=== PATIENT | male | born 1965 | race Caucasian/White ===

== ENCOUNTER 2017-05-15 07:53 | Inpatient (IN) | payer OTHER ==
[~2017-05-15] VITALS: Ht 172.7 cm; Wt 79.5 kg
[~2017-05-15 07:53] MED LIST: ATAZ300C5 PO; DULO20CA43 PO; EMTR1TAB11 PO; RITO100T PO
[2017-05-15 12:58] VITALS: BP 127/79; PULSE 95; RESP 18; Ht 172.7 cm; Wt 79.5 kg
[2017-05-15 13:14] VITALS: PULSE 89
--- NOTE | 2017-05-15 14:20 | HP ---
Date/Time of Note Date/Time of Note DATE: 05/15/17 TIME: 13:54 Assessment/Plan VTE Prophylaxis VTE Prophylaxis Intervention: SCD's Assessment/Plan Assessment/Plan 51 yo M with 1. Migraine headaches 2. Colitis with abd pain and diarrhea 3. Meth user 4. Chest pain now resolved PLAN: Empiric abx with cipro and flagyl for colitis Stool studies and blood cultures IVF / pain control / antiemetics Telemetry admission, trend cardiac enzymes, 2d echo if none recently Daily aspirin if no allergy or bleeding risk. Get lipid profile, magnesium and TSH levels in am. HPI/ROS Admit Date/Time Admit Date/Time May 15, 2017 at 12:39 Hx of Present Illness 51-year-old male with a history of HIV who had presented to [facility] with complaints of headache photophobia and chest pain. He described this as generalized and cramping. He has had bowel movements but states that none with diarrhea L. Denies history of travel or spelled foods. Headache is in the frontal as well as occipital areas, associated with photophobia and was relieved by medication given in the emergency room. He has no neck stiffness or pain. He has nonspecific chest pain that is nonradiating does not have a history of coronary artery disease. Per report his last CD4 count was 256 and he had an undetected viral load at the time. Patient per report has also been passing foul-smelling gas. ROS 12 point review if systems was done and pertinent findings are as noted. PMH/Family/Social Past Medical History 1 HIV disease 2. Chronic migraines 3. History of shigellosis in the past 4. History of syphilis in the past 5. History of chickenpox in the past 6. Known gallstones without cholecystitis 7. History history of PTSD Social History Smoking Status: Current every day smoker Drug Use: other (Methamphetamine abuse last used last night) Exam/Review of Systems Vital Signs Vitals Vital Signs Date Time Temp Pulse Resp B/P Pulse Ox O2 Delivery O2 Flow Rate FiO2 05/15/17 13:14 89 05/15/17 12:58 98.0 18 127/79 96 Room Air Procedures Procedures Urinalysis was negative for obvious infection that was sperm in the urine however Stool studies were sent for C. difficile toxin, as well as enteric pathogens and parasites. Lipase level was normal First troponin was negative Total bilirubin was elevated at 4.1, indirect was elevated at 3.9. AST was mildly elevated at 45, ALT normal alkaline phosphatase normal. Serum sodium was low 133, potassium normal, chloride low 94, glucose within normal range, otherwise BMP was unremarkable Lactic acid level was normal CBC showed white count of 10,000 normal hemoglobin, normal hematocrit, normal platelet counts, normal differentials. EKG over at the emergency room at [facility] showed sinus tachycardia [address] scan showed colitis per report. Official radiology report is not available. LIANNA BROWN. May 15, 2017 14:04
[2017-05-15] MEDS ORDERED: LORAZEPAM 2 MG INJ IV PRN (14:30)
[2017-05-15] MEDS ORDERED: ONDANSETRON 4 MG INJ IV PRN (14:30)
[2017-05-15] MEDS ORDERED: HYDROCODONE/APAP (5/325) TAB PO PRN (14:30)
[2017-05-15] MEDS ORDERED: ACETAMINOPHEN 325 MG TAB PO PRN (14:30)
[2017-05-15 15:22] LABS: TROPONIN-I 0.015 ng/ml (0.00-0.12)
[2017-05-15 15:28] LABS: CK-MB 0.39 ng/ml (0.0-2.4)
[2017-05-15] MEDS: SOD CHLORIDE 0.9% 1,000 ML IV SCH ×2 (15:29→22:30)
[2017-05-15] MEDS: ATAZANAVIR 150 MG CAP PO SCH (15:30)
[2017-05-15] MEDS: RITONAVIR 100 MG CAP PO SCH (15:30)
[2017-05-15] MEDS: CIPROFLOXACIN 400MG/D5W 200 ML IVPB SCH (15:30)
[2017-05-15] MEDS: EMTRICITABINE/TENOFOVIR TAB PO SCH (15:30)
[2017-05-15] MEDS: metroNIDAZOLE 500 MG TAB PO SCH ×2 (15:30→22:18)
[2017-05-15 16:07] VITALS: PULSE 87
[2017-05-15 16:13] VITALS: BP 129/79; RESP 18
--- NOTE | 2017-05-15 17:05 | RADRPT ---
Echocardiogram Report Patient Name: PLACIDO CORRALES Gender: Male Date: 1965 Study Date: 15-May-2017 Echocardiologist: [facility] Location: 5554 Ref. Physician: LIANNA BROWN Quality: Adequate Procedures: Transthoracic echocardiogram with complete 2D, M-Mode, and doppler examination. Indications: Chest Pain / Meth Use. 2D/M Mode Doppler Measurement Value Normal Ranges Measurement Value Normal Ranges LVIDd 2D 4.6 3.5 - 5.6 cm AV Peak Dirk 1.3 m/sec LVIDs 2D 3.2 2.1 - 4.1 cm AV Peak PG 6.3 mmHg LVPWd 2D 1.1 0.6 - 1.1 cm LVOT Peak Dirk 1.1 m/sec IVSd 2D 1.0 0.6 - 1.1 cm LVOT Peak PG 4.6 mmHg AoR Diam 2D 2.8 2.0 - 3.7 cm MV E Peak Dirk 0.9 m/sec EDV 2D 97.3 cm3 MV A Peak Dirk 0.8 m/sec ESV 2D 31.7 cm3 MV E/A 1.1 LA Dimen 2D 4.0 2.3 - 4.0 cm MV Decel Time 185 msec MV Decel [place] 5 MV E/A 1.1 Findings Left Ventricle: Normal left ventricular systolic function. Normal left ventricular cavity size. Normal left ventricular wall thickness. Ejection fraction is visually estimated at 65 %. Abnormal Diastolic Function. Right Ventricle: Normal right ventricular size. Normal right ventricular systolic function. Left Atrium: The left atrium is normal in size. Right Atrium: The right atrium is normal in size. Mitral Valve: Normal appearance and function of the mitral valve with trace physiologic regurgitation. Aortic Valve: Normal appearance of the aortic valve. No significant aortic stenosis or insufficiency. Tricuspid Valve: Normal appearance and function of the tricuspid valve with trace physiologic regurgitation. Pericardium: Normal pericardium with no significant pericardial effusion. Aorta: Normal aortic root. IVC: Normal size and normal respiratory collapse consistent with normal right atrial pressure. Conclusions Normal left ventricular systolic function. Normal left ventricular cavity size. Normal left ventricular wall thickness. Ejection fraction is visually estimated at 65 %. Abnormal Diastolic Function. Normal right ventricular size. Normal right ventricular systolic function. The left atrium is normal in size. The right atrium is normal in size. No significant valvular stenosis or regurgitation seen. Normal pericardium with no significant pericardial effusion. Electronically Signed By: Crescencio Ahn 15-May-2017 17:04:58 -0700 Patient Name: PLACIDO CORRALES Study Date: 15-May-2017 [id number]
[2017-05-15] MEDS: morphine 2 MG INJ IV PRN (17:24)
[2017-05-15 20:37] VITALS: PULSE 89
[2017-05-15 20:58] VITALS: BP 114/68; PULSE 86; RESP 16
[2017-05-16] VITALS (9 sets, daily range): BP systolic 110–122; BP diastolic 63–71; PULSE 79–91; RESP 18–20
[2017-05-16] MEDS: CIPROFLOXACIN 400MG/D5W 200 ML IVPB SCH ×2 (01:08→08:31)
[2017-05-16] MEDS: morphine 2 MG INJ IV PRN ×2 (02:24→08:32)
[2017-05-16] MEDS: metroNIDAZOLE 500 MG TAB PO SCH ×2 (05:45→13:45)
[2017-05-16] MEDS: SOD CHLORIDE 0.9% 1,000 ML IV SCH ×2 (05:45→13:45)
[2017-05-16 07:42] LABS: ADD SCAN DIFF NO
[2017-05-16 07:48] LABS: EOSINOPHILS # 0.2 10^3/ul (0.0-0.5); EOSINOPHILS % 2.3 % (0.0-7.0); HEMATOCRIT 38.4 % (42.0-52.0); HEMOGLOBIN 12.4 g/dl (14.0-18.0); LYMPHOCYTES # 1.4 10^3/ul (0.8-2.9); LYMPHOCYTES % 18.1 % (15.0-51.0); MEAN CORPUSCULAR HEMOGLOBIN 29.3 pg (29.0-33.0); MEAN CORPUSCULAR HGB CONC 32.3 g/dl (32.0-37.0); MEAN CORPUSCULAR VOLUME 90.8 fl (82.0-101.0); MEAN PLATELET VOLUME 8.8 fl (7.4-10.4); MONOCYTE # 0.8 10^3/ul (0.3-0.9); MONOCYTES % 9.9 % (0.0-11.0); NEUTROPHIL # 5.4 10^3/ul (1.6-7.5); NEUTROPHILS % 69.4 % (39.0-77.0); PLATELET COUNT 224 10^3/UL (140-415); RED BLOOD COUNT 4.23 10^6/ul (4.70-6.10); RED CELL DISTRIBUTION WIDTH 13.7 % (11.5-14.5); WHITE BLOOD COUNT 7.7 10^3/ul (4.8-10.8)
[2017-05-16 08:31] LABS: ALBUMIN 3.4 g/dl (3.3-4.9); BILIRUBIN,INDIRECT 3.4 mg/dl (0-1.1); BILIRUBIN,TOTAL 3.4 mg/dl (0.2-1.3); CALCIUM 8.2 mg/dl (8.4-10.2); CHOL/HDL RATIO 3.4 RATIO; CREATININE 0.7 mg/dl (0.61-1.24); POTASSIUM 3.8 mmol/L (3.5-5.1)
[2017-05-16] MEDS: EMTRICITABINE/TENOFOVIR TAB PO SCH (08:31)
[2017-05-16] MEDS: ATAZANAVIR 150 MG CAP PO SCH (08:31)
[2017-05-16] MEDS: RITONAVIR 100 MG CAP PO SCH (08:31)
[2017-05-16] MEDS ORDERED: DULOXETINE 20 MG CAP DR PO SCH (09:00)
[2017-05-16] MEDS ORDERED: ASPIRIN 81 MG TAB PO SCH (09:00)
[2017-05-16] MEDS ORDERED: ASPI81TA3 PO (10:56)
[2017-05-16] MEDS ORDERED: METR500T PO (10:56)
[2017-05-16] MEDS ORDERED: LACT1CAP43 PO (10:58)
[2017-05-16] MEDS ORDERED: CIPR500T4 PO (10:58)
[2017-05-16] MEDS ORDERED: HYDR-906 PO (10:58)
[2017-05-16] MEDS ORDERED: CHLO25CA9 PO (13:22)
[2017-05-16] MEDS ORDERED: TRAM50TA2 PO (13:22)
--- NOTE | 2017-05-16 13:23 | PDOCDIS ---
Discharge Instructions DIAGNOSIS Discharge Diagnosis: Colitis CONDITION Patient Condition: Stable HOME CARE INSTRUCTIONS: Special Diet: Cardiac Diet / high fiber ACTIVITY: Activity Restrictions: Slowly Increase Activity Rest between Activity FOLLOW UP/APPOINTMENTS Appointments Followup with your primary doctor within the next 1-2 weeks. If you don't have one please let someone know, we can give you resources that may help you pick one. You may call Dr Chandrakant Galloway's office. he's accepting new patients Name, Degree: Chandrakant Galloway MD Specialty: Internal Medicine Comments: Office Address: [address] [place] [address] [place] [address] Office Office You may also call your insurance company to assign one to you. Review your medication list with your nurse before leaving and if you need new prescriptions please let your nurse know. I may have made changes to your home medications or given you new prescriptions , please let your primary doctor know as well. Stay compliant with your medications and report any side effects to your PCP or pharmacist. Return to the ER if you have any concerns and cannot reach your doctors or call your insurance company, they usually have a nurse that can help you. LIANNA BROWN May 16, 2017 13:23
--- NOTE | 2017-05-16 19:28 | DS ---
Date/Time of Note Date/Time of Note DATE: 05/16/17 TIME: 19:28 Discharge Summary Admission/Discharge Info Admit Date/Time May 15, 2017 at 12:39 Discharge Date/Time May 16, 2017 at 16:12 Final Diagnosis 51 yo M with 1. Migraine headaches 2. Colitis with abd pain and diarrhea 3. Meth user 4. Chest pain now resolved Hx of Present Illness 51-year-old male with a history of HIV who had presented to [facility] with complaints of headache photophobia and chest pain. He described this as generalized and cramping. He has had bowel movements but states that none with diarrhea L. Denies history of travel or spelled foods. Headache is in the frontal as well as occipital areas, associated with photophobia and was relieved by medication given in the emergency room. He has no neck stiffness or pain. He has nonspecific chest pain that is nonradiating does not have a history of coronary artery disease. Per report his last CD4 count was 256 and he had an undetected viral load at the time. Patient per report has also been passing foul-smelling gas. Home Meds Active Scripts Tramadol HCl (Tramadol HCl) 50 Mg Tablet, 50 MG PO Q6H Y for PAIN, #21 TAB Prov:LIANNA BROWN . 05/16/17 Chlordiazepoxide* (Chlordiazepoxide*) 25 Mg Capsule, 25 MG PO Q8H Y for CONTROL WITHDRAWAL SYMPTOMS, #21 CAP Prov:LIANNA BROWN . 05/16/17 Lactobacillus Acidophilus (ACIDOPHILUS PROBIOTIC) 1 Mg Tablet, 1 MG PO BID for 9 Days, TAB Prov:LIANNA BROWN Woody 05/16/17 Ciprofloxacin Hcl* (Ciprofloxacin Hcl*) 500 Mg Tablet, 500 MG PO BID for 9 Days , TAB Prov:LIANNA BROWN . 05/16/17 Aspirin (Aspirin) 81 Mg Chew, 81 MG PO DAILY for 30 Days, TAB 2 Refills Prov:VASILE BROWNMaria Luz . 05/16/17 Metronidazole* (Flagyl*) 500 Mg Tablet, 500 MG PO Q8 for 9 Days, TAB Prov:LIANNA BROWN 05/16/17 Reported Medications Atazanavir Sulfate* (Reyataz*) 300 Mg Capsule, 300 MG PO DAILY 12/26/13 Ritonavir* (Norvir*) 100 Mg Tablet, 100 MG PO DAILY 12/26/13 Duloxetine Hcl* (Cymbalta*) 20 Mg Capsule.dr, 20 MG PO DAILY 12/26/13 Emtricitabine-Tenofovir* (Truvada*) 1 Each Tablet, 1 EACH PO DAILY 12/26/13 Primary Care Provider Not On Staff Doctor Pending Labs Laboratory Tests Test 05/16/17 07:05 White Blood Count 7.710^3/ul (4.8-10.8) Red Blood Count 4.2310^6/ul (4.70-6.10) Hemoglobin 12.4g/dl (14.0-18.0) Hematocrit 38.4% (42.0-52.0) Mean Corpuscular Volume 90.8fl (82.0-101.0) Mean Corpuscular Hemoglobin 29.3pg (29.0-33.0) Mean Corpuscular Hemoglobin Concent 32.3g/dl (32.0-37.0) Red Cell Distribution Width 13.7% (11.5-14.5) Platelet Count 80515^3/UL (140-415) Mean Platelet Volume 8.8fl (7.4-10.4) Neutrophils % 69.4% (39.0-77.0) Lymphocytes % 18.1% (15.0-51.0) Monocytes % 9.9% (0.0-11.0) Eosinophils % 2.3% (0.0-7.0) Basophils % 0.0% (0.0-2.0) Nucleated Red Blood Cells % 0.0/100WBC (0.0-0.0) Neutrophils # 5.410^3/ul (1.6-7.5) Lymphocytes # 1.410^3/ul (0.8-2.9) Monocytes # 0.810^3/ul (0.3-0.9) Eosinophils # 0.210^3/ul (0.0-0.5) Basophils # 0.010^3/ul (0.0-0.1) Nucleated Red Blood Cells # 0.010^3/ul (0.0-0.0) Sodium Level 139mmol/L (135-144) Potassium Level 3.8mmol/L (3.5-5.1) Chloride Level 107mmol/L (97-110) Carbon Dioxide Level 24mmol/L (21-31) Anion Gap 12 (8-16) Blood Urea Nitrogen 8mg/dl (7-20) Creatinine 0.70mg/dl (0.61-1.24) Glucose Level 100mg/dl (70-220) Calcium Level 8.2mg/dl (8.4-10.2) Total Bilirubin 3.4mg/dl (0.2-1.3) Direct Bilirubin 0.00mg/dl (0.00-0.20) Indirect Bilirubin 3.4mg/dl (0-1.1) Aspartate Amino Transf (AST/SGOT) 28IU/L (15-46) Alanine Aminotransferase (ALT/SGPT) 34IU/L (13-69) Alkaline Phosphatase 92IU/L (42-121) Total Protein 6.0g/dl (6.1-8.1) Albumin 3.4g/dl (3.3-4.9) Triglycerides Level 83mg/dl (0-149) Cholesterol Level 104mg/dl (100-200) LDL Cholesterol, Calculated 57mg/dl HDL Cholesterol 30mg/dl (28-71) Cholesterol/HDL Ratio 3.4RATIO LIANNA BROWN May 16, 2017 19:28
--- NOTE | 2017-05-17 12:38 | QN ---
Documentation Comment Received message from the lab about positive blood culture with gram-positive rods, I called patient on his contact #[phone] but this is a number that has been disconnected, I also attempted to contact his emergency contact Bruna ACE letter, the patient she informed me that the patient along the resides with her and she knows not how to contact him. She refused to take a message and asked me to contact him directly. LIANNA BROWN. May 17, 2017 12:38
[2017-05-17 13:12] LABS: LYMPHOCYTE - CD4/CD8 RATIO 0.25 (0.86-5.00)
== END 2017-05-16 16:12 | disposition home or self-care (01) | DRG 102 ==
LOC: MS4 12:39
PROVIDERS: ADMIT Family Medicine; ATTEND Family Medicine
DX: G43.909 Migraine, unspecified, not intractable, without status migrainosus (principal); B20 Human immunodeficiency virus [HIV] disease; K52.9 Noninfective gastroenteritis and colitis, unspecified; F15.10 Other stimulant abuse, uncomplicated; R07.9 Chest pain, unspecified; K80.80 Other cholelithiasis without obstruction; F43.10 Post-traumatic stress disorder, unspecified; F17.210 Nicotine dependence, cigarettes, uncomplicated; E86.0 Dehydration
CPT/HCPCS: 80048; 80061; 80076; 82550; 82553; 83735; 84484; 85025; 86360; 87040; 87045; 87177; 87205; 93306; J0744; J2270; J7030

== ENCOUNTER 2018-01-02 04:55 | Inpatient (IN) | END 2018-01-05 11:30 | disposition home or self-care (01) | DRG 977 ==